=== PATIENT | male | born 1945 | race Caucasian/White ===

== ENCOUNTER 2017-04-26 07:41 | Emergency (ER) | payer MEDICARE, BC ==
[~2017-04-26] VITALS: Ht 170.2 cm; Wt 81.0 kg
[~2017-04-26 07:41] MED LIST: ACET325T PO; AMLO10TA2 PO; ASPI1TAB57 PO; CALC600T13 PO; EZET10 PO; METO25TA3 PO; MULT-135 PO; SPIR25TA PO; XARE20TA PO
[2017-04-26 07:43] VITALS: BP 156/74; PULSE 63; RESP 18; TEMP 97.4; O2SAT 96
[2017-04-26] MEDS ORDERED: MULTTAB67 PO (08:09)
[2017-04-26] MEDS ORDERED: CALC1TAB87 PO (08:09)
[2017-04-26] MEDS ORDERED: LIPI80TA PO (08:09)
[2017-04-26] MEDS ORDERED: CYCL5TAB PO (08:12)
--- NOTE | 2017-04-26 08:12 | PD ---
HPI Chief Complaint: Back/ Neck Pain or Injury Time Seen by Provider: 07:54 Travel History International Travel<30 days: No Contact w/Intl Traveler<30days: No Traveled to known affect area: No History of Present Illness HPI This is a 71-year-old male presents the ER complaining of bilateral neck pain. Patient states that he was fighting a cold last week and has been coughing a lot and since then he started noticing neck pain bilaterally. He says pain is 3 out of 10, spasm-like, worse when he moves his neck to the sides although he has no problems moving his neck up or down, there is no fever or headache no shows no blurry vision, no meningeal signs. PFSH Past Medical History Atrial Fibrillation: Yes High Cholesterol: Yes Coronary Artery Disease: Yes Diabetes: No Diminished Hearing: No Hypertension: Yes Tetanus Vaccination: Unknown Past Surgical History Coronary Artery Bypass Graft: Yes Social History Alcohol Use: Yes (DAILY) Tobacco Use: No Substance Use: No Allergies-Medications (Allergen,Severity, Reaction): Coded Allergies: No Known Allergies (Unverified Adverse Reaction, Unknown, 04/26/17) Reported Meds & Prescriptions Reported Meds & Active Scripts Active Flexeril (Cyclobenzaprine HCl) 5 Mg Tab 5 Mg PO TID Reported Calcium 600 with Vitamin D (Calcium Carbonate-Cholecalciferol) 600-400 mg-Unit Tab 1 Tab PO DAILY Multiple Vitamin 1 Tab 1 Tab PO DAILY Lipitor (Atorvastatin Calcium) 80 Mg Tab 80 Mg PO HS Spironolactone 25 Mg Tab 25 Mg PO DAILY Zetia (Ezetimibe) 10 Mg Tab 10 Mg PO DAILY Amlodipine (Amlodipine Besylate) 10 Mg Tab 10 Mg PO DAILY Aspirin 81 (Aspirin) 81 Mg Tabdr 81 Mg PO DAILY Xarelto (Rivaroxaban) 20 Mg Tab 20 Mg PO DAILY Metoprolol Tartrate 25 Mg Tab 25 Mg PO BID Review of Systems Except as stated in HPI: all other systems reviewed are Neg HENT: Positive: Neck Pain, No: Neck Stiffness Physical Exam Narrative GENERAL: Alert oriented 3 no acute distress SKIN: Focused skin assessment warm/dry. HEAD: Atraumatic. Normocephalic. EYES: Pupils equal and round. No scleral icterus. No injection or drainage. ENT: No nasal bleeding or discharge. Mucous membranes pink and moist. NECK: Tenderness on palpation of the paraspinal muscles of the neck bilaterally , no meningeal signs, full range of motion of the neck even though his tenderness. No neck rigidity. CARDIOVASCULAR: Regular rate and rhythm. No murmur appreciated. RESPIRATORY: No accessory muscle use. Clear to auscultation. Breath sounds equal bilaterally. GASTROINTESTINAL: Abdomen soft, non-tender, nondistended. Hepatic and splenic margins not palpable. MUSCULOSKELETAL: no obvious deformities. No clubbing. No cyanosis. No edema. NEUROLOGICAL: Awake and alert. No obvious cranial nerve deficits. Motor grossly within normal limits. Normal speech. PSYCHIATRIC: Appropriate mood and affect; insight and judgment normal. Data Data Last Documented VS Vital Signs Date Time Temp Pulse Resp B/P (MAP) Pulse Ox O2 Delivery O2 Flow Rate FiO2 04/26/17 07:43 97.4 63 18 156/74 (101) 96 Orders Orders Ed Discharge Order (04/26/17 08:10) MDM Medical Decision Making Medical Screen Exam Complete: Yes Emergency Medical Condition: Yes Differential Diagnosis Meningitis, muscle spasm. Disc disease. Narrative Course This is a 72-year-old male presents to the ER complaining of neck pain after he was fighting a cold in the last week. There is no signs or symptoms that can lead to meningitis. Careful physical examination is not concerning for meningitis since patient has no meningeal signs and his neck exam is benign except for muscle tenderness of the neck. Patient has no headache or fever or chills or blurry vision or photosensitivity. I believe this patient's symptoms are consistent with muscle spasm of the paraspinal muscles around the neck and he would benefit from heat packs and Flexeril. I discussed the side effects of Flexeril and patient understands that it might make him drowsy and is not supposed to be driving with it. Patient is stable to be discharged. Diagnosis Primary Impression: Muscle spasm Patient Instructions: General Instructions Departure Forms: Tests/Procedures Additional Instructions: Follow-up with primary care physician and return to ER if symptoms change does not improve. Scripts Cyclobenzaprine (Flexeril) 5 Mg Tab 5 MG PO TID for Muscle Spasm, #30 TAB 0 Refills Prov: Riaz Lacey MD 04/26/17 Disposition: 01 DISCHARGE HOME Condition: Stable Riaz Lacey MD Apr 26, 2017 08:12
== END 2017-04-26 08:25 | disposition home or self-care (01) ==
LOC: PHED 07:41
DX: M62.838 Other muscle spasm (principal); I48.91 Unspecified atrial fibrillation; E78.00 Pure hypercholesterolemia, unspecified; I25.10 Atherosclerotic heart disease of native coronary artery without angina pectoris; I10 Essential (primary) hypertension; Z79.01 Long term (current) use of anticoagulants; Z79.82 Long term (current) use of aspirin
CPT/HCPCS: 99283